=== PATIENT | male | born 1980 | race Caucasian/White ===

== ENCOUNTER 2018-11-07 18:43 | Emergency (ER) | payer SELFPAY, BC | END 2018-11-07 19:10 | disposition home or self-care (01) | LOC: C.ER 18:43 ==

== ENCOUNTER 2018-11-08 14:49 | Inpatient (IN) | payer OTHER ==
[2018-11-08 14:50] VITALS: BMI 22.8
[2018-11-08 15:35] LABS: BASO % 0.8 % (0.0-2.0); EOS # 0.1 K/uL (0.0-0.7); EOS % 1.5 % (0.0-4.0); LYMPH # 1.9 K/uL (1.0-4.3); LYMPH % 32.2 % (20.0-40.0); MEAN CELL VOLUME 92.3 fL (80.0-94.0); MEAN CORPUSCULAR HGB CONC 34.6 g/dL (33.0-37.0); MEAN PLATELET VOLUME 8.6 fL (7.2-11.7); MONO # 0.7 K/uL (0.0-0.8); NEUT # 3.2 K/uL (1.8-7.0); NEUT % 53.5 % (50.0-75.0); NRBC % 0.1 % (0.0-2.0); RBC 4.39 Mil/uL (4.40-5.90); RED CELL DISTRIBUTION WIDTH 13.1 % (11.5-14.5); WHITE BLOOD COUNT 5.9 K/uL (4.8-10.8)
[2018-11-08 15:47] LABS: ALBUMIN 3.8 g/dL (3.5-5.0); ALT/SGPT 86 U/L (21-72); AST/SGOT 88 U/L (17-59); BLOOD UREA NITROGEN 35 mg/dL (9-20); CALCIUM 9.1 mg/dl (8.6-10.4); GFR NON-AFRICAN AMERICAN 48
--- NOTE | 2018-11-08 16:07 | C.PDOC ---
History Of Present Illness 38 y/o male comes in to ED requesting detox from heroin. Patient is accompanied by . Patient was seen here yesterday also requesting detox and was discharged and told to wait for a call back for detox beds. Patient states he has no phone so he returns to ER today. Last use was yesterday afternoon before coming to the ER. He denies nausea, vomiting, headache, fever, or chills. Time Seen by Provider: 11/08/18 14:59 Chief Complaint (Nursing): Substance Abuse History Per: Patient, Family History/Exam Limitations: no limitations Onset/Duration Of Symptoms: Days Current Symptoms Are (Timing): Still Present Past Medical History Reviewed: Historical Data, Nursing Documentation, Vital Signs Vital Signs: Last Vital Signs Temp 98.5 F 11/08/18 14:53 Pulse 83 11/08/18 14:53 Resp 20 11/08/18 14:53 BP 142/95 H 11/08/18 14:53 Pulse Ox 99 11/08/18 14:53 Primary Care Provider: FAMILY PROVIDER,NO - Medical History PMH: Denies: Anxiety, Bipolar Disorder, Depression, Paranoia, Post Traumatic Str ess Disorder, Schizophrenia - [facility] Procedures INJECT/INFUSE NEC (09/06/14) Family History: States: No Known Family Hx - Social History Hx Alcohol Use: No Hx Substance Use: Yes - Immunization History Hx Tetanus Toxoid Vaccination: No Hx Influenza Vaccination: No Hx Pneumococcal Vaccination: No Review Of Systems Except As Marked, All Systems Reviewed And Found Negative. Constitutional: Negative for: Fever, Chills Gastrointestinal: Negative for: Nausea, Vomiting Neurological: Positive for: Other (heroin use). Negative for: Headache Psych: Negative for: Suicidal ideation Physical Exam - Physical Exam Appears: Non-toxic, No Acute Distress Skin: Warm, Dry Head: Normacephalic Eye(s): bilateral: Other (pinpoint pupils) Oral Mucosa: Moist Neck: Supple Cardiovascular: Rhythm Regular, No Murmur Gastrointestinal/Abdominal: Soft, No Tenderness Extremity: Bilateral: Atraumatic, Normal ROM Neurological/Psych: Oriented x3, Normal Speech ED Course And Treatment - Laboratory Results Result Diagrams: 11/08/18 15:32 11/08/18 15:32 Lab Results: Total Bilirubin 0.4 mg/dL (0.2-1.3) 11/08/18 15:32 AST 88 U/L (17-59) H 11/08/18 15:32 ALT 86 U/L (21-72) H 11/08/18 15:32 Alkaline Phosphatase 67 U/L (38-126) 11/08/18 15:32 Total Protein 7.5 g/dL (6.3-8.3) 11/08/18 15:32 Albumin 3.8 g/dL (3.5-5.0) 11/08/18 15:32 Globulin 3.7 gm/dL (2.2-3.9) 11/08/18 15:32 Albumin/Globulin Ratio 1.0 (1.0-2.1) 11/08/18 15:32 O2 Sat by Pulse Oximetry: 99 (RA) Pulse Ox Interpretation: Normal Medical Decision Making Medical Decision Making: Plan: --Labs --Urinaylsis Pending evaluation by [facility] for detox bed. Disposition - Disposition Disposition: HOSPITALIZED Disposition Time: 16:54 Condition: GUARDED Forms: [employer] (Vietnamese) - POA Present On Arrival: None - Clinical Impression Clinical Impression: Drug dependence - Scribe Statement The provider has reviewed the documentation as recorded by the Rafyibkayleen Bauman Provider Attestation: All medical record entries made by the Rafyibkayleen were at my direction and personally dictated by me. I have reviewed the chart and agree that the record accurately reflects my personal performance of the history, physical exam, medical decision making, and the department course for this patient. I have also personally directed, reviewed, and agree with the discharge instructions and disposition. Decision To Admit - Pt Status Changed To: Hospital Disposition Of: Observation - . Bed Request Type: Detox Admitting Physician: Abdulaziz Moseley Patient Diagnosis: Drug dependence
[2018-11-08 16:20] LABS: BARBITURATES, UR NEGATIVE (NEGATIVE); BENZODIAZEPINES, UR NEGATIVE (NEGATIVE); PHENCYCLIDINE, UR NEGATIVE (NEGATIVE)
[2018-11-08 16:24] LABS: SQUAMOUS EPITHIAL < 1 /hpf (0-5); URINE BACTERIA MOD (<OCC); URINE BILIRUBIN NEGATIVE (NEGATIVE); URINE BLOOD 1+ (NEGATIVE); URINE CLARITY Hazy (Clear); URINE COLOR Amber (YELLOW); URINE GLUCOSE (UA) NORMAL (Normal); URINE LEUKOCYTE ESTERASE NEG Leu/uL (Negative); URINE PROTEIN 3+ mg/dL (NEGATIVE)
[2018-11-08 16:34] LABS: OPIATES, UR POSITIVE (NEGATIVE)
--- NOTE | 2018-11-08 17:52 | PCM.BM ---
Treatment Plan Problems - Problems identified on initial assessmt Denial Date Initiated: 11/08/18 Time Initiated: 17:51 Assessment reference: NA Status: Active Defensive Coping Date Initiated: 11/08/18 Time Initiated: 17:51 Assessment reference: NA Status: Active Hopelessness Date Initiated: 11/08/18 Time Initiated: 17:51 Status: Active Treatment assets and liabiliti Patient Assests: cooperative, negotiates basic needs Patient Liabilities: substance abuse - Milieu Protocol Maintain good personal hygiene: daily Encourage regular showers, daily Remind patient to perform daily oral care, daily Assist patient to perform ADL's Conduct patient checks and document Observation sheet: Q15 minutes Maintain personal safety: every shift Educate patient to report safety concerns to staff, every shift Monitor environment for contraband/sharps Medication safety: Monitor for expected outcome, potential side effects: every shift, Assess barriers to learning: every shift, Assess readiness for medication education: every shift
[2018-11-08] MEDS ORDERED: Aluminum Hydroxide/Magnesium Hydroxide Susp (30 mL) PO PRN (18:51)
[2018-11-09 08:56] LABS: ALBUMIN 3.4 g/dL (3.5-5.0); ALT/SGPT 78 U/L (21-72); AST/SGOT 88 U/L (17-59); BLOOD UREA NITROGEN 30 mg/dL (9-20); CALCIUM 8.7 mg/dl (8.6-10.4); GFR NON-AFRICAN AMERICAN > 60
--- NOTE | 2018-11-09 11:31 | PCM.PSYCH ---
Initial Psychiatric Evaluation - Initial Psychiatric Evaluation Type of Admission: Voluntary Legal Status: Capacity Chief Complaint (in patient's own words): "I'm getting sick" History of Present Illness and Precipitating Events: The patient is seen, chart reviewed and case discussed. This is a 38-year-old male, , has 5 children ages 13, 14, 15, 21, 22. The patient is currently homeless and unemployed. He came to ER with his girlfriend who was not the mother of any of his children. The patient admits to using IV heroin and cocaine for the past 3 years. He last used on the day of admission. He uses 20 bags on average and half gram of cocaine He started 22 years ago. No history of ODs and this is his first detox. However, he was in rehab twice before. He denies alcohol and other drug use. His urine is positive for amphetamines but he denies using them. He feels depressed and anxious but has no past psych history. No medical history but he looks frail and thin. Family psych history: Father also used heroin, cocaine and alcohol. Current Medications: Active Medications Generic Name Dose Route Start Last Admin Trade Name Freq PRN Reason Stop Dose Admin Al Hydrox/Mg Hydrox/Simethicone 30 ml 11/08/18 18:51 Maalox 30 Ml PO TID PRN Indigestion / Heartburn Clonidine HCl 0.1 mg 11/08/18 18:51 Catapres PO Q4 PRN COWS Score More or Equal to 5 Dicyclomine HCl 10 mg 11/08/18 18:51 Bentyl PO Q6 PRN Muscle spasm Hydroxyzine HCl 25 mg 11/08/18 18:54 Atarax PO Q4H PRN Anxiety Loperamide HCl 2 mg 11/08/18 18:51 Imodium PO Q8 PRN Diarrhea Ondansetron HCl 4 mg 11/08/18 18:51 Zofran Tab PO Q8 PRN Nausea/Vomiting Trazodone HCl 50 mg 11/08/18 22:00 11/08/18 21:08 Desyrel PO 50 mg HS AMANDA Administration Past Psychiatric History - Past Psychiatric History Pertinent Medical Hx (Current Medical&Sleep Prob, Allergies): Allergies Allergy/AdvReac Type Severity Reaction Status Date / Time aspirin Allergy Verified 11/08/18 14:57 No Known Home Med 11/07/18 Review of Systems - Psychiatric Psychiatric: Abnormal Sleep Pattern, Anhedonia, Anxiety, Change in Appetite, Difficulty Concentrating. absent: Hallucinations, Homicidal Ideation, Suicidal Ideation Mental Status Examination - Personal Presentation Personal Presentation: Looks stated age - Affect Affect: Constricted - Motor Activity Motor Activity: Calm - Reliability in Providing Information Reliability in Providing Information: Good - Speech Speech: Organized - Mood Mood: Depressed, Anxious - Formal Thought Process Formal Thought Process: No Impairment - Cognitive Functions Orientation: Person, Place, Situation, Time Attention/Concentration: Easily distracted Estimate of Intelligence: Average Judgement: Intact, as evidence by: Insight regarding need for hospitalization Memory: Recent intact, as evidence by: Ability to recall events of the day, Remote intact, as evidenced by: Abilit to recall sig. life events - Risk Risk: Withdrawal, Diminished functioning - Strength & Assets Inventory Strength & Assets Inventory: Cooperative - Limitations Limitations: Other DSM 5 DX - DSM 5 DSM 5 Diagnosis: Opioid withdrawal Opioid use disorder, severe Cocaine use disorder, severe Depressive disorders, unspecified - Recommended/Plan of Treatment Treatment Recommendations and Plan of Treatment: Taper with subutex Gabapentin for augmentation if needed As needed medications All risks, benefits and alternatives of the meds discussed, and the pt agreed and understood. Attend groups and activities Supportive therapy and psychoeducation [place] for abstinence CBT for relapse prevention Encourage MAT Refer to rehab or IOP, and self-help groups Teach healthy lifestyle methods, i.e. diet, exercise, meditation Smoking cessation with [place] Nicotine patch if needed 34 min
[2018-11-10 08:07] LABS: BLOOD UREA NITROGEN 24 mg/dL (9-20); CALCIUM 9.7 mg/dl (8.6-10.4); GFR NON-AFRICAN AMERICAN > 60
--- NOTE | 2018-11-10 10:22 | PCM.PYCHPN ---
Psychiatric Progress Note - Psychiatric Progress Note Patient seen today, length of contact: 16 min Patient Chief Complaint: "I'm not well" Problems Identified/Issues Discussed: The pt is seen, chart reviewed, case is discussed with staff. The pt is compliant with medications and reports no side-effects. Taper started after he began withdrawing. Symptoms are improving but needs more time to stabilize and to avoid relapse. Pt attends groups and activities but not much, mostly isolates self. Support given, psycho-education provided. After care discussed. Medication Change: Yes (detox changes daily) Medical Record Reviewed: Yes Mental Status Examination - Cognitive Function Orientation: Person, Place, Situation, Time Memory: Intact Attention: WNL Concentration: Poor Association: WNL Fund of Knowledge: WNL - Mood Mood: Depressed, Anxious - Affect Affect: Constricted - Speech Speech: Appropriate - Formal Thought Process Formal Thought Process: No Impairment - Suicidal Ideation Suicidal Ideation: No - Homicidal Ideation Homicidal Ideation: No Goal/Treatment Plan - Goal/Treatment Plan Need for Continued Stay: Discharge may exacerbated symptoms, Severe functional impairment Progress Toward Problem(s) and Goals/Treatment Plan: Taper with subutex Gabapentin for augmentation if needed As needed medications All risks, benefits and alternatives of the meds discussed, and the pt agreed and understood. Attend groups and activities Supportive therapy and psychoeducation [place] for abstinence CBT for relapse prevention Encourage MAT Refer to rehab or IOP, and self-help groups Teach healthy lifestyle methods, i.e. diet, exercise, meditation Smoking cessation with [place] Nicotine patch if needed
--- NOTE | 2018-11-12 11:07 | PCM.PYCHPN ---
Psychiatric Progress Note - Psychiatric Progress Note Patient seen today, length of contact: 16 min Medication Change: Yes (detox changes daily) Medical Record Reviewed: Yes Mental Status Examination - Cognitive Function Orientation: Person, Place, Situation, Time Memory: Intact Attention: WNL Concentration: Poor Association: WNL Fund of Knowledge: WNL - Mood Mood: Depressed, Anxious - Affect Affect: Constricted - Speech Speech: Appropriate - Formal Thought Process Formal Thought Process: No Impairment - Suicidal Ideation Suicidal Ideation: No - Homicidal Ideation Homicidal Ideation: No Goal/Treatment Plan - Goal/Treatment Plan Need for Continued Stay: Discharge may exacerbated symptoms, Severe functional impairment
[2018-11-12 13:59] LABS: ALB/GLOB RATIO 0.9 (1.0-2.1); ALBUMIN 3.7 g/dL (3.5-5.0); ALT/SGPT 84 U/L (21-72); AST/SGOT 74 U/L (17-59); BLOOD UREA NITROGEN 20 mg/dL (9-20); CALCIUM 9.4 mg/dl (8.6-10.4); GFR NON-AFRICAN AMERICAN > 60
--- NOTE | 2018-11-13 09:00 | PCM.PYCHDC ---
Mental Status Examination - Mental Status Examination Orientation: Person Discharge Summary - Discharge Note Laboratory Data: Abnormal Lab Results 11/12/18 13:39 Sodium 136 Potassium 4.3 Chloride 102 Carbon Dioxide 26 Anion Gap 13 BUN 20 Creatinine 1.1 Est GFR ( Amer) > 60 Est GFR (Non-Af Amer) > 60 Random Glucose 94 Calcium 9.4 Magnesium 1.8 Total Bilirubin 0.4 AST 74 H ALT 84 H Alkaline Phosphatase 76 Total Protein 7.6 Albumin 3.7 Globulin 3.9 Albumin/Globulin Ratio 0.9 L TSH 3rd Generation 3.69 Consultations:: List each consultation separately and include: 1. Reason for request. 2. Findings. 3. Follow-up Summary of Hospital Course include:: 1. Description of specific treatment plan utilized for patients during their course of treatmen. 2. Summarize the time- course for resolution of acute symptoms and/or regressed behaviors. 3. Describe issues identified and worked on during hospitalization. 4. Describe medication utilized. 5. Describe medical problems identified and treated. 6. Reassessment of suicide risk Summary of Hospital Course: The patient is seen, chart reviewed and case discussed. This is a 38-year-old male, , has 5 children ages 13, 14, 15, 21, 22. The patient is currently homeless and unemployed. He came to ER with his girlfriend who was not the mother of any of his children. The patient admits to using IV heroin and cocaine for the past 3 years. He last used on the day of admission. He uses 20 bags on average and half gram of cocaine He started 22 years ago. No history of ODs and this is his first detox. However, he was in rehab twice before. He denies alcohol and other drug use. His urine is positive for amphetamines but he denies using them. He feels depressed and anxious but has no past psych history. No medical history but he looks frail and thin. Family psych history: Father also used heroin, cocaine and alcohol. He went to [facility] - Final Diagnosis (DSM 5) Condition upon Discharge: GUARDED Disposition: HOME/ ROUTINE Follow-up Treatment Plan: Taper with subutex Gabapentin for augmentation if needed As needed medications All risks, benefits and alternatives of the meds discussed, and the pt agreed and understood. Attend groups and activities Supportive therapy and psychoeducation [place] for abstinence CBT for relapse prevention Encourage MAT Refer to rehab or IOP, and self-help groups Teach healthy lifestyle methods, i.e. diet, exercise, meditation Smoking cessation with [place] Nicotine patch if needed Prescriptions/Medication Reconciliation: Losartan [Cozaar] 50 mg PO DAILY #30 tab Mirtazapine [Remeron] 30 mg PO HS #30 tab
[2018-11-13 10:13] VITALS: BP 119/74; PULSE 95; RESP 18; TEMP 98; O2SAT 98
--- NOTE | 2018-11-13 22:13 | PCM.PYCHPN ---
Psychiatric Progress Note - Psychiatric Progress Note Patient seen today, length of contact: 16 min Patient Chief Complaint: "I'm not well" Problems Identified/Issues Discussed: The pt is seen, chart reviewed, case is discussed with staff. The pt is compliant with medications and reports no side-effects. Taper started after he began withdrawing. Symptoms are improving but needs more time to stabilize and to avoid relapse. Pt attends groups and activities but not much, mostly isolates self. Support given, psycho-education provided. After care discussed. Medication Change: Yes (detox changes daily) Medical Record Reviewed: Yes Mental Status Examination - Cognitive Function Orientation: Person - Mood Mood: Depressed, Anxious - Affect Affect: Constricted - Speech Speech: Appropriate - Formal Thought Process Formal Thought Process: No Impairment - Suicidal Ideation Suicidal Ideation: No - Homicidal Ideation Homicidal Ideation: No Goal/Treatment Plan - Goal/Treatment Plan Need for Continued Stay: Discharge may exacerbated symptoms, Severe functional impairment Progress Toward Problem(s) and Goals/Treatment Plan: Taper with subutex Gabapentin for augmentation if needed As needed medications All risks, benefits and alternatives of the meds discussed, and the pt agreed and understood. Attend groups and activities Supportive therapy and psychoeducation [place] for abstinence CBT for relapse prevention Encourage MAT Refer to rehab or IOP, and self-help groups Teach healthy lifestyle methods, i.e. diet, exercise, meditation Smoking cessation with [place] Nicotine patch if needed
== END 2018-11-13 10:30 | disposition home or self-care (01) | DRG 772 ==
LOC: C.ER 14:49 → C.7D 16:55 → OBSVTOIN 11-09 17:06
PROVIDERS: ADMIT Psychiatry & Neurology Psychiatry; ATTEND Psychiatry & Neurology Psychiatry
PROC: HZ2ZZZZ Detoxification Services for Substance Abuse Treatment (ICD-10-PCS; principal; 2018-11-09)
PROC: HZ46ZZZ Group Counseling for Substance Abuse Treatment, Psychoeducation (ICD-10-PCS; 2018-11-09)
PROC: HZ80ZZZ Medication Management for Substance Abuse Treatment, Nicotine Replacement (ICD-10-PCS; 2018-11-09)
PROC: HZ88ZZZ Medication Management for Substance Abuse Treatment, Psychiatric Medication (ICD-10-PCS; 2018-11-09)
PROC: HZ59ZZZ Individual Psychotherapy for Substance Abuse Treatment, Supportive (ICD-10-PCS; 2018-11-09)
DX: F11.23 Opioid dependence with withdrawal (principal); F14.20 Cocaine dependence, uncomplicated; F17.210 Nicotine dependence, cigarettes, uncomplicated; F32.9 Major depressive disorder, single episode, unspecified; Z59.0 Homelessness